=== PATIENT | male | born 1955 | race Caucasian/White ===

== ENCOUNTER 2018-01-22 07:24 | Inpatient (IN) | payer OTHER ==
[2018-01-16 11:44] LABS: CLARITY,URINE CLEAR (Clear); COLOR,URINE YELLOW (Yellow); GLUCOSE, URINE NEGATIVE (Neg); KETONES,URINE TRACE mg/dl (Neg); LEUKOCYTE ESTERASE ,URINE NEGATIVE (Neg); NITRITES, URINE NEGATIVE (Neg); OCCULT BLOOD,URINE NEGATIVE (Neg); PROTEIN,URINE NEGATIVE (Neg)
[2018-01-16 11:45] LABS: UA COLLECTION TYPE NON-SPECIFIED
[2018-01-16 11:54] LABS: BASOPHILS % (AUTO) 0.6 % (0-1); EOSINOPHILS # (AUTO) 0.2 X10'3 (0-0.9); EOSINOPHILS % (AUTO) 3.6 % (0-6); LYMPHOCYTES # (AUTO) 1.4 X10'3 (1.1-4.8); LYMPHOCYTES % (AUTO) 27.4 % (21-51); MEAN CORPUSCULAR HEMOGLOBIN 28.6 PG (27.0-31.0); MEAN CORPUSCULAR HGB CONC 33.1 % (33.0-36.5); MEAN CORPUSCULAR VOLUME 86.4 FL (78-98); MEAN PLATELET VOLUME 8.3 FL (7.4-10.4); MONOCYTES # (AUTO) 0.5 X10'3 (0-0.9); NEUTROPHILS % (AUTO) 58.4 % (42-75); PRE OP HEMATOCRIT 40.4 % (42.0-52.0); PRE OP HEMOGLOBIN 13.4 g/dL (14.0-17.9); PRE OP PLATELET COUNT 237 X10'3 (140-440); RED BLOOD COUNT 4.67 X10'6 (4.70-6.10)
[2018-01-16 12:26] LABS: ALBUMIN 3.9 G/DL (3.4-5.0); ALKALINE PHOSPHATASE 83 IU/L (46-116); BLOOD UREA NITROGEN 15 MG/DL (7-18); CALCIUM 9.3 MG/DL (8.5-10.1); CHLORIDE 101 MMOL/L (99-107); PRE OP ALT 33 U/L (30-65); PRE OP ANION GAP 7 (8-16); PRE OP AST 23 U/L (10-37); PRE OP BILIRUB, TOTAL 0.7 MG/DL (0.0-1.0); PRE OP GLUCOSE 112 MG/DL (70-104); PRE OP POTASSIUM 4.4 MMOL/L (3.4-5.1); PRE OP SODIUM 139 MMOL/L (135-145); TOTAL CARBON DIOXIDE 31.4 MMOL/L (24-32); TOTAL PROTEIN 7.9 G/DL (6.4-8.2); eGFR 75 ML/MIN
[~2018-01-22] VITALS: Ht 175.3 cm; Wt 128.0 kg
[2018-01-22] VITALS (19 sets, daily range): BP systolic 87–141; BP diastolic 45–99
[~2018-01-22 07:24] MED LIST: ASCO500C15 PO; Cefazolin 2GM/50ML dext iso,osmotic IVPB IV ONE; DICL75TA5 PO; HYDROmorphone 1 mg/ml syringe IV PRN; OXYC-150 PO; TRIA1CAP6 PO; VIT1TABL83 PO; acetaminophen 325mg tablet PO ONE; celeCOXIB 100mg capsule PO ONE; famotidine 20mg tablet PO ONE; gabapentin 300mg capsule PO ONE; oxyCODONE SR 10mg (sust. release) tab -2 tabs (20mg) PO ONE; ringers solution, lacted 1,000 ML IV SCH; tranexamic acid inj. 1,000 MG in normal saline 100ml IV soln 90 ML IV ONE; vancomycin inj 1,500 MG in normal saline 300ml IV soln IV ONE
[2018-01-22] MEDS ORDERED: ketorolac trometh. 30mg/ml inj. ONE (10:01)
[2018-01-22] MEDS ORDERED: cloNIDine hcl/PF 100mcg/ml inj ONE (10:01)
[2018-01-22] MEDS ORDERED: epiNEPHrine 1 mg/ml inj ONE (10:01)
[2018-01-22] MEDS ORDERED: vancomycin 1,000mg inj ONE (10:01)
[2018-01-22] MEDS ORDERED: ROPIVAcaine 0.5% (5mg/ml) 30ml vial ONE ×2 (10:01→12:13)
[2018-01-22] MEDS ORDERED: tetracaine 1% (10mg/ml) pres. free inj. ONE (10:36)
[2018-01-22] MEDS ORDERED: MIDAZolam 1mg/ml 10ml vial ONE (11:02)
[2018-01-22] MEDS ORDERED: fentaNYL/PF 50MCG/1 ML 2ML syringe ONE (11:02)
[2018-01-22] MEDS ORDERED: BUPIVAcaine/dex-water/PF 7.5 mg/ml 2ml ampul ONE (11:06)
[2018-01-22] MEDS ORDERED: ringers solution, lacted 1,000 ML IV SCH (12:07)
[2018-01-22] MEDS ORDERED: meperidine/PF 25mg/ml syringe IV PRN ×3 (12:10)
[2018-01-22] MEDS ORDERED: morphine 4 MG/ML inj SYRINge IV PRN ×2 (12:10)
[2018-01-22] MEDS ORDERED: ondansetron/PF 4mg/2ml inj IV PRN ×2 (12:10→14:30)
[2018-01-22] MEDS ORDERED: proCHLORperazine 10 MG/2 ml inj IV PRN (12:10)
[2018-01-22] MEDS ORDERED: diphenhydrAMINE 25mg capsule PO PRN ×2 (14:30→21:00)
[2018-01-22] MEDS ORDERED: bisacodyl 10mg suppository rectal RC PRN (14:31)
[2018-01-22] MEDS ORDERED: HYDROmorphone 1 mg/ml syringe IV PRN (14:32)
[2018-01-22] MEDS: potassium cl 20mEq in 1/2 NS 1,000 ML IV SCH (15:52)
[2018-01-22] MEDS ORDERED: acetaminophen 325mg tablet PO PRN (16:00)
[2018-01-22] MEDS: oxyCODONE/APAP 10/325mg tablet PO PRN (17:52)
[2018-01-22] MEDS ORDERED: magnesium hydroxide 30ml (MOM) UD suspension PO PRN (21:00)
[2018-01-22] MEDS: ascorbic acid 500mg tablet PO SCH (21:02)
[2018-01-22] MEDS: cefazolin/dext.iso 2gm/50ml 50 ML IV SCH (21:03)
[2018-01-22] MEDS: gabapentin 300mg capsule PO SCH (21:03)
[2018-01-22] MEDS: sennosides 8.6mg tablet PO SCH (21:03)
[2018-01-23] MEDS: potassium cl 20mEq in 1/2 NS 1,000 ML IV SCH ×2 (00:16→08:29)
[2018-01-23] MEDS: cefazolin/dext.iso 2gm/50ml 50 ML IV SCH (00:16)
[2018-01-23] MEDS: oxyCODONE/APAP 10/325mg tablet PO PRN ×5 (00:23→21:13)
[2018-01-23 02:00] VITALS: BP 121/72
[2018-01-23 05:15] LABS: BASOPHILS % (AUTO) 0.9 % (0-1); EOSINOPHILS # (AUTO) 0.3 X10'3 (0-0.9); EOSINOPHILS % (AUTO) 5.1 % (0-6); HEMATOCRIT 30.4 % (42.0-52.0); HEMOGLOBIN 10.1 g/dl (14.0-17.9); LYMPHOCYTES # (AUTO) 1.4 X10'3 (1.1-4.8); LYMPHOCYTES % (AUTO) 24.9 % (21-51); MEAN CORPUSCULAR HEMOGLOBIN 28.3 PG (27.0-31.0); MEAN CORPUSCULAR VOLUME 85.7 FL (78-98); MEAN PLATELET VOLUME 8.4 FL (7.4-10.4); MONOCYTES # (AUTO) 0.8 X10'3 (0-0.9); MONOCYTES % (AUTO) 14.9 % (2-12); NEUTROPHILS % (AUTO) 54.2 % (42-75); PLATELET COUNT 203 X10'3 (140-440); RED BLOOD COUNT 3.55 X10'6 (4.70-6.10); RED CELL DISTRIBUTION WIDTH 15.4 % (11.5-14.5); WHITE BLOOD COUNT 5.6 X10'3 (4.5-11.0)
[2018-01-23 05:42] LABS: ANION GAP 6 (8-16); CHLORIDE 103 MMOL/L (99-107); POTASSIUM 4.2 MMOL/L (3.5-5.1); SODIUM 139 MMOL/L (135-145); TOTAL CARBON DIOXIDE 30.3 MMOL/L (24-32)
[2018-01-23 06:00] VITALS: BP 136/67
[2018-01-23] MEDS: ascorbic acid 500mg tablet PO SCH ×2 (08:28→19:48)
[2018-01-23] MEDS: multivitamins, therapeutics tablet PO SCH (08:29)
[2018-01-23] MEDS: triamterene/HCTZ 37.5/25mg tablet PO SCH (08:29)
[2018-01-23] MEDS: aspirin 325mg tablet PO SCH (08:29)
[2018-01-23] MEDS: gabapentin 300mg capsule PO SCH ×3 (08:29→21:13)
[2018-01-23 10:00] VITALS: BP 142/82
[2018-01-23 14:00] VITALS: BP 139/71
[2018-01-23 18:00] VITALS: BP 138/78
[2018-01-23] MEDS: celeCOXIB 100mg capsule PO SCH (19:48)
[2018-01-23] MEDS: sennosides 8.6mg tablet PO SCH (21:16)
[2018-01-23 22:00] VITALS: BP 152/89
[2018-01-24] MEDS: oxyCODONE/APAP 10/325mg tablet PO PRN ×5 (01:41→20:15)
[2018-01-24 06:00] VITALS: BP 143/76
[2018-01-24 06:07] LABS: BASOPHILS % (AUTO) 0.3 % (0-1); EOSINOPHILS # (AUTO) 0.2 X10'3 (0-0.9); HEMOGLOBIN 11.6 g/dl (14.0-17.9); LYMPHOCYTES # (AUTO) 1.3 X10'3 (1.1-4.8); LYMPHOCYTES % (AUTO) 21.2 % (21-51); MEAN CORPUSCULAR HEMOGLOBIN 28.9 PG (27.0-31.0); MEAN CORPUSCULAR HGB CONC 33.9 % (33.0-36.5); MEAN CORPUSCULAR VOLUME 85.2 FL (78-98); MEAN PLATELET VOLUME 8.3 FL (7.4-10.4); MONOCYTES # (AUTO) 0.7 X10'3 (0-0.9); NEUTROPHILS # (AUTO) 3.9 X10'3 (1.8-7.7); NEUTROPHILS % (AUTO) 63.5 % (42-75); PLATELET COUNT 240 X10'3 (140-440); RED BLOOD COUNT 3.99 X10'6 (4.70-6.10); RED CELL DISTRIBUTION WIDTH 15.6 % (11.5-14.5); WHITE BLOOD COUNT 6.2 X10'3 (4.5-11.0)
[2018-01-24] MEDS: multivitamins, therapeutics tablet PO SCH (09:05)
[2018-01-24] MEDS: gabapentin 300mg capsule PO SCH ×3 (09:05→20:22)
[2018-01-24] MEDS: triamterene/HCTZ 37.5/25mg tablet PO SCH (09:05)
[2018-01-24] MEDS: celeCOXIB 100mg capsule PO SCH ×2 (09:05→20:22)
[2018-01-24] MEDS: ascorbic acid 500mg tablet PO SCH ×2 (09:05→20:22)
[2018-01-24] MEDS: aspirin 325mg tablet PO SCH (09:05)
[2018-01-24 10:00] VITALS: BP 135/72
[2018-01-24] MEDS ORDERED: ASPI-1 PO (10:51)
[2018-01-24 18:00] VITALS: BP 147/83
[2018-01-24] MEDS: sennosides 8.6mg tablet PO SCH (20:22)
[2018-01-24 22:00] VITALS: BP 132/80
[2018-01-25] MEDS: oxyCODONE/APAP 10/325mg tablet PO PRN ×2 (05:06→09:23)
[2018-01-25 06:00] VITALS: BP 152/81
[2018-01-25] MEDS: aspirin 325mg tablet PO SCH (08:29)
[2018-01-25] MEDS: ascorbic acid 500mg tablet PO SCH (08:29)
[2018-01-25] MEDS: celeCOXIB 100mg capsule PO SCH (08:29)
[2018-01-25] MEDS: gabapentin 300mg capsule PO SCH (08:29)
[2018-01-25] MEDS: multivitamins, therapeutics tablet PO SCH (08:29)
[2018-01-25] MEDS: triamterene/HCTZ 37.5/25mg tablet PO SCH (08:29)
[2018-01-25 08:32] LABS: BASOPHILS # (AUTO) 0.1 X10'3 (0-0.2); BASOPHILS % (AUTO) 1.2 % (0-1); EOSINOPHILS # (AUTO) 0.2 X10'3 (0-0.9); HEMATOCRIT 34.5 % (42.0-52.0); HEMOGLOBIN 11.4 g/dl (14.0-17.9); LYMPHOCYTES % (AUTO) 18.3 % (21-51); MEAN CORPUSCULAR HEMOGLOBIN 28.4 PG (27.0-31.0); MEAN CORPUSCULAR HGB CONC 33.1 % (33.0-36.5); MEAN PLATELET VOLUME 7.8 FL (7.4-10.4); MONOCYTES # (AUTO) 0.6 X10'3 (0-0.9); MONOCYTES % (AUTO) 11.6 % (2-12); NEUTROPHILS # (AUTO) 3.6 X10'3 (1.8-7.7); NEUTROPHILS % (AUTO) 64.9 % (42-75); PLATELET COUNT 244 X10'3 (140-440); RED BLOOD COUNT 4.01 X10'6 (4.70-6.10); RED CELL DISTRIBUTION WIDTH 15.3 % (11.5-14.5); WHITE BLOOD COUNT 5.6 X10'3 (4.5-11.0)
== END 2018-01-25 12:29 | disposition home or self-care (01) | DRG 488 ==
LOC: PAS IN 07:24 → EDSTATUS 12:30 → ORTHO 4S 14:05
PROVIDERS: ADMIT Orthopaedic Surgery; ATTEND Orthopaedic Surgery
PROC: 0SUW09Z Supplement Left Knee Joint, Tibial Surface with Liner, Open Approach (ICD-10-PCS; 2018-01-22)
PROC: 3E0T3BZ Introduction of Anesthetic Agent into Peripheral Nerves and Plexi, Percutaneous Approach (ICD-10-PCS; 2018-01-22)
PROC: 0SPD09Z Removal of Liner from Left Knee Joint, Open Approach (ICD-10-PCS; principal; 2018-01-22 10:56)
DX: T84.023A Instability of internal left knee prosthesis, initial encounter (principal); D62 Acute posthemorrhagic anemia; Z68.41 Body mass index [BMI] 40.0-44.9, adult; Z96.652 Presence of left artificial knee joint; I10 Essential (primary) hypertension; Y79.2 Prosthetic and other implants, materials and accessory orthopedic devices associated with adverse incidents; M25.562 Pain in left knee; F11.90 Opioid use, unspecified, uncomplicated; M25.561 Pain in right knee; E66.01 Morbid (severe) obesity due to excess calories; F41.9 Anxiety disorder, unspecified; G89.4 Chronic pain syndrome; F32.9 Major depressive disorder, single episode, unspecified; K21.9 Gastro-esophageal reflux disease without esophagitis; Z79.899 Other long term (current) drug therapy; Z87.891 Personal history of nicotine dependence
CPT/HCPCS: 36415; 71045; 73560; 80051; 80053; 81003; 85025; 85610; 85730; 86885; 86900; 86901; 87070; 97110; 97116; 97161; 97530; A4333; A6455; A7000; A9272; C1758; C1776; J0171; J0690; J0735; J1170; J1885; J2250; J2795; J3010; J3370; J3490; J7030; J7120

== ENCOUNTER 2020-04-10 06:05 | Inpatient (IN) | payer OTHER ==
[2020-04-03 16:48] LABS: BASOPHILS % (AUTO) 0.8 % (0-1); EOSINOPHILS # (AUTO) 0.2 X10'3 (0-0.9); EOSINOPHILS % (AUTO) 4.4 % (0-6); LYMPHOCYTES # (AUTO) 1.4 X10'3 (1.1-4.8); LYMPHOCYTES % (AUTO) 25.5 % (21-51); MEAN CORPUSCULAR HEMOGLOBIN 29.6 PG (27.0-31.0); MEAN CORPUSCULAR VOLUME 89.8 FL (78-98); MEAN PLATELET VOLUME 8.4 FL (7.4-10.4); MONOCYTES # (AUTO) 0.6 X10'3 (0-0.9); MONOCYTES % (AUTO) 10.2 % (2-12); NEUTROPHILS # (AUTO) 3.3 X10'3 (1.8-7.7); NEUTROPHILS % (AUTO) 59.1 % (42-75); PRE OP HEMATOCRIT 39.8 % (42.0-52.0); PRE OP HEMOGLOBIN 13.2 g/dL (14.0-17.9); PRE OP PLATELET COUNT 207 X10'3 (140-440); RED BLOOD COUNT 4.44 X10'6 (4.70-6.10); RED CELL DISTRIBUTION WIDTH 16.8 % (11.5-14.5)
[2020-04-03 16:58] LABS: PRE OP PROTIME 10.4 SECONDS (9.0-12.0)
[2020-04-03 17:01] LABS: ALBUMIN 4.1 G/DL (3.4-5.0); ALKALINE PHOSPHATASE 83 IU/L (46-116); BLOOD UREA NITROGEN 21 MG/DL (7-18); BUN/CREATININE RATIO 17.6 (5.4-32.0); CALCIUM 9.5 MG/DL (8.5-10.1); CHLORIDE 101 MMOL/L (99-107); CREATININE 1.19 MG/DL (0.60-1.10); PRE OP ALT 41 U/L (30-65); PRE OP ANION GAP 9 (8-16); PRE OP AST 36 U/L (10-37); PRE OP BILIRUB, TOTAL 0.6 MG/DL (0.0-1.0); PRE OP GLUCOSE 101 MG/DL (70-104); PRE OP SODIUM 138 MMOL/L (135-145); TOTAL CARBON DIOXIDE 28.3 MMOL/L (24-32); TOTAL PROTEIN 8.4 G/DL (6.4-8.2); eGFR 61 ML/MIN
[~2020-04-10] VITALS: Ht 172.7 cm; Wt 132.4 kg
[~2020-04-10 06:05] MED LIST changes: -ASCO500C15 PO; +ASCO500C18 PO; +ASPI-1 PO; -Cefazolin 2GM/50ML dext iso,osmotic IVPB IV ONE; +HYDROmorphone inj. 0.5 MG/0.5 ML DISP.SYRIN IV PRN; +acetaminophen 325mg tablet PO PRN; +bisacodyl 10mg suppository rectal RC PRN; +ceFAZolin inj. 3,000 MG in normal saline 100ml IV soln 100 ML IV ONE; +diphenhydrAMINE 25mg capsule PO PRN; +magnesium hydroxide 30ml (MOM) UD suspension PO PRN; +metoclopramide 5 mg/ml inj IV ONE; +ondansetron/PF 4mg/2ml inj IV PRN; +oxyCODONE/APAP 10/325mg tablet PO PRN; +potassium cl 20mEq in 1/2 NS 1,000 ML IV SCH; +tranexamic acid inj. 0 MG in normal saline 100ml IV soln 100 ML IV ONE; -tranexamic acid inj. 1,000 MG in normal saline 100ml IV soln 90 ML IV ONE; +vancomycin 1,500 MG in NS 300ml IV soln IV ONE; -vancomycin inj 1,500 MG in normal saline 300ml IV soln IV ONE
[2020-04-10] MEDS ORDERED: TRANEXAMIC ACID 1 GM IN NACL,ISO-OS 100 ML IV ONE (06:30)
[2020-04-10] MEDS ORDERED: gabapentin 300mg capsule PO SCH ×2 (08:00→21:00)
[2020-04-10] MEDS ORDERED: ROPIVAcaine inj 250 MG, CloNIDine/PF inj 80 MCG, epiNEPHrine inj 0.5 MG in normal salin... IV ONE (08:20)
[2020-04-10 09:15] VITALS: BP 150/87
--- NOTE | 2020-04-10 10:20 | NUR ---
PT HAS PUNCTURE WOUND WITH SCAB AND REDDNESS ON LEFT KNEE. DR TERRELL IN TO SEE PT, CANCELED CASE, WILL RESCHEDULE. PT DISCHARGED HOME, FRIEND DRIVING PT HOME.
[2020-04-10] MEDS ORDERED: cefepime 2g/NS 100ml ADVANTAGE 100 ML IV SCH (16:00)
[2020-04-10] MEDS ORDERED: sennosides 8.6mg tablet PO SCH (21:00)
[2020-04-10] MEDS ORDERED: VANCOMYCIN 1,500MG inj. 1,500 MG in normal saline 500ml IV soln 300 ML IV SCH (23:00)
[2020-04-11] MEDS ORDERED: aspirin 325mg tablet PO SCH (08:30)
[2020-04-11] MEDS ORDERED: celeCOXIB 100mg capsule PO SCH (20:00)
== END 2020-04-10 10:35 | disposition home or self-care (01) | DRG 556 ==
LOC: PAS IN 06:05 → UNDOADMIN 09:04 → PAS IN 09:04 → UNDODISIN 10:35 → EDSTATUS 11:30
PROVIDERS: ADMIT Orthopaedic Surgery; ATTEND Orthopaedic Surgery
DX: M25.562 Pain in left knee (principal); Z53.8 Procedure and treatment not carried out for other reasons; Z96.652 Presence of left artificial knee joint; Z20.828 Contact with and (suspected) exposure to other viral communicable diseases; Z87.891 Personal history of nicotine dependence; Z79.899 Other long term (current) drug therapy; Z79.82 Long term (current) use of aspirin
CPT/HCPCS: 36415; 71046; 80053; 85025; 85610; 85730; 86885; 86900; 86901; 87081; 87635; J0690; J0692; J2765; J3370; J3480; J7040; J7120

== ENCOUNTER 2024-07-20 10:52 | Outpatient (CLI) | payer OTHER ==
[~2024-07-20 10:52] MED LIST changes: -ASCO500C18 PO; -ASPI-1 PO; -DICL75TA5 PO; -HYDROmorphone 1 mg/ml syringe IV PRN; -HYDROmorphone inj. 0.5 MG/0.5 ML DISP.SYRIN IV PRN; +LISI20TA28 PO; -OXYC-150 PO; -TRIA1CAP6 PO; +TRIA1CAP88 PO; -acetaminophen 325mg tablet PO ONE; -acetaminophen 325mg tablet PO PRN; -bisacodyl 10mg suppository rectal RC PRN; -ceFAZolin inj. 3,000 MG in normal saline 100ml IV soln 100 ML IV ONE; -celeCOXIB 100mg capsule PO ONE; -diphenhydrAMINE 25mg capsule PO PRN; -famotidine 20mg tablet PO ONE; -gabapentin 300mg capsule PO ONE; -magnesium hydroxide 30ml (MOM) UD suspension PO PRN; -metoclopramide 5 mg/ml inj IV ONE; -ondansetron/PF 4mg/2ml inj IV PRN; -oxyCODONE SR 10mg (sust. release) tab -2 tabs (20mg) PO ONE; -oxyCODONE/APAP 10/325mg tablet PO PRN; -potassium cl 20mEq in 1/2 NS 1,000 ML IV SCH; -ringers solution, lacted 1,000 ML IV SCH; -tranexamic acid inj. 0 MG in normal saline 100ml IV soln 100 ML IV ONE; -vancomycin 1,500 MG in NS 300ml IV soln IV ONE
== END 2024-07-20 23:59 | disposition home or self-care (01) ==
LOC: RAD 10:52
PROVIDERS: ATTEND Anesthesiology
DX: M16.12 Unilateral primary osteoarthritis, left hip (principal); Z96.652 Presence of left artificial knee joint; M17.12 Unilateral primary osteoarthritis, left knee; T84.84XD Pain due to internal orthopedic prosthetic devices, implants and grafts, subsequent encounter; M21.769 Unequal limb length (acquired), unspecified tibia and fibula; R53.81 Other malaise; Z91.81 History of falling; Y79.2 Prosthetic and other implants, materials and accessory orthopedic devices associated with adverse incidents; Y92.89 Other specified places as the place of occurrence of the external cause
CPT/HCPCS: 73522; 73560